=== PATIENT | male | born 1995 | race Two or more races ===

== ENCOUNTER 2024-03-26 09:24 | Emergency (ER) | payer SELFPAY ==
[2024-03-26] MEDS ORDERED: KETOROLAC 30 MG/ML INJ ONE (09:51)
[2024-03-26] MEDS ORDERED: AMOX/K CLAV 875 MG TAB ONE (09:51)
[2024-03-26] MEDS ORDERED: TDAP (DIPHTH,PERTUSS(ACELL),TET VAC) 0.5 ML VIAL IMVAC ONE (09:52)
--- NOTE | 2024-03-26 11:00 | RAD REPORT ---
EXAMINATION: XR RIGHT FOOT CLINICAL INDICATION: Male, 28 years old. dog bite, lateral portion[facility] MAIN dog bite, lateral portion Bed: TECHNIQUE: Multiple views of the right foot were obtained. COMPARISON: No prior exam. FINDINGS: No fracture, dislocation or radiopaque foreign body. No soft tissue gas. Mild soft tissue s welling along the anterior aspect of the foot dorsal soft tissues.
--- NOTE | 2024-03-26 11:03 | EDPHYS ---
Physician Documentation [facility] Name: Thai Linn Age: 28 yrs Sex: Male : 1995 Arrival Date: 03/26/2024 Time: 09:24 Bed 16 Private MD: ED Physician Shahram Head HPI: 03/26 09:37 This 28 yrs old Male presents to ER via Wheelchair with complaints of Dog ec2 Bite - right foot. 09:37 Patient arrives today for evaluation after being bitten by his dog. Reports his dog is ec2 not up-to-date on his vaccines. States that the bite happened 2 days ago. Patient reports no fevers or chills, reports persistent pain which is what prompted evaluation. Reports no medication allergies. Reports some redness to the area as well.. Historical: - Allergies: 09:36 No Known Allergies; iw - Home Meds: 09:36 None [Active]; iw - PMHx: 09:36 None; iw - PSHx: 09:36 None; iw - Immunization history:: Last tetanus immunization: unknown. - Infectious Disease History:: Denies. - Social history:: Smoking status: Smoking status: Reported history of juuling and/or vaping. ROS: 09:37 Constitutional: as per hpi ec2 Exam: 09:37 Constitutional: GEN: NAD Head: atraumatic Eyes: EOMI Ears: External ears are ec2 normal. CV: regular rate LUNGS: no respiratory distress ABD: non-distended SKIN: Puncture wound x 3 to the right lateral aspect of the foot, overlying erythema, no discharge appreciated. MSK: no evidence of trauma Vital Signs: 09:36 BP 152 / 99; Pulse 81; Resp 16; Temp 98.1(O); Pulse Ox 98% on R/A; Weight 113.4 kg; iw Height 5 ft. 11 in. ; Pain 0/10; 11:16 BP 142 / 86; Pulse 88; Resp 18; Pulse Ox 100% on R/A; mb9 09:36 Body Mass Index 34.87 (113.40 kg, 180.34 cm) iw 09:36 Pain Scale: Adult iw MDM: 09:37 Patient medically screened. ec2 09:37 Data reviewed: vital signs. ED course: Patient arrives today for evaluation after being ec2 bitten by dog. Examination remarkable for skin findings as above. Will obtain radiograph. Suspect infection. Discussed possible rabies vaccinations however will decline at this time. Will evaluate for other process such as bony fracture, additionally considered cellulitis . 10:53 ED course: Foot x-ray independently reviewed and interpreted by me, shows no bony ec2 fracture. Will start the patient on antibiotics and discharged home. Return precautions given.. 03/26 09:37 Order name: Foot Right 3 View XRAY; Complete Time: 11:02 ec2 Administered Medications: 09:58 Drug: Boostrix Tdap IM 0.5 ml IM once; as a single dose {Note: 03/15/25 333SK mb9 [employer].} Route: IM; Site: left deltoid; 11:16 Follow up: Response: No adverse reaction mb9 09:58 Not Given (Patient Refused): [id number] mg IM once mb9 10:01 Drug: Amoxicillin-Clavulanate PO 875 mg PO once Route: PO; mb9 11:16 Follow up: Response: No adverse reaction mb9 Disposition Summary: 03/26/24 11:03 Discharge Ordered Notes: Location: Home ec2 Condition: Stable ec2 Diagnosis - Bitten by dog ec2 - Cellulitis of right lower limb ec2 Followup: ec2 - With: Private Physician - When: - Reason: Re-evaluation by your physician Discharge Instructions: - Discharge Summary Sheet ec2 - Animal Bite, Adult, [id number] ec2 Forms: - Work release form ec2 - Medication Reconciliation Form ec2 - Antibiotic Education ec2 - Prescription Opioid Use ec2 - Patient Portal Instructions ec2 - Leadership Thank You Letter ec2 Prescriptions: - Augmentin 875-125 mg Oral Tablet - take 1 tablet ORAL route every 12 hours for 10 days; 20 tablet; Refills: 0, ec2 Product Selection Permitted Signatures: Dispatcher [employer] Alena Marquez RN RN iw Wilkerson, Mary Beth, RN RN mb9 Shahram Head MD MD ec2
--- NOTE | 2024-03-26 11:03 | ER ---
Nurse's Notes [facility] Name: Thai Linn Age: 28 yrs Sex: Male : 1995 Arrival Date: 03/26/2024 Time: 09:24 Bed 16 Private MD: Diagnosis: Bitten by dog;Cellulitis of right lower limb Presentation: 03/26 09:35 Chief complaint: Patient states: was bit by his dog on Sunday night, bit on right foot, iw puncture wounds noted to top and bottom of foot. Coronavirus screen: At this time, the client does not indicate any symptoms associated with coronavirus-19. Ebola Screen: No symptoms or risks identified at this time. Risk Assessment: Do you want to hurt yourself or someone else? Patient reports no desire to harm self or others. 09:35 Method Of Arrival: Wheelchair iw 09:40 Initial Sepsis Screen: Does the patient meet any 2 criteria? No. Patient's initial iw sepsis screen is negative. Does the patient have a suspected source of infection? No. Patient's initial sepsis screen is negative. Onset of symptoms was March 24, 2024. 09:40 Acuity: JOAQUIN 4 iw Historical: - Allergies: 09:36 No Known Allergies; iw - Home Meds: 09:36 None [Active]; iw - PMHx: 09:36 None; iw - PSHx: 09:36 None; iw - Immunization history:: Last tetanus immunization: unknown. - Infectious Disease History:: Denies. - Social history:: Smoking status: Smoking status: Reported history of juuling and/or vaping. Screenin:00 [facility] ED Fall Risk Assessment (Adult) History of falling in the last 3 months, mb9 including since admission No falls in past 3 months (0 pts) Confusion or Disorientation No (0 pts) Intoxicated or Sedated No (0 pts) Impaired Gait No (0 pts) Mobility Assist Device Used No (0 pt) Altered Elimination No (0 pt) Score/Fall Risk Level 0 - 2 = Low Risk Oriented to surroundings, Maintained a safe environment, Educated pt \T\ family on fall prevention, incl call for assistance when getting out of bed. Abuse screen: Denies threats or abuse. Nutritional screening: No deficits noted. Tuberculosis screening: No symptoms or risk factors identified. Assessment: 09:59 General: Appears in no apparent distress. Behavior is calm, cooperative. Pain: mb9 Complains of pain in right foot. Neuro: Mccoy Agitation-Sedation Scale (RASS): 0 - Alert and Calm Level of Consciousness is awake, alert, obeys commands, Oriented to person, place, time, situation, Appropriate for age. Cardiovascular: Patient's skin is warm and dry. Respiratory: Airway is patent Respiratory effort is even, unlabored, Respiratory pattern is regular, symmetrical. GI: No signs and/or symptoms were reported involving the gastrointestinal system. : No signs and/or symptoms were reported regarding the genitourinary system. EENT: No signs and/or symptoms were reported regarding the EENT system. Derm: Skin is intact, Skin is pink, warm \T\ dry. Musculoskeletal: Range of motion: intact in all extremities, Swelling present in right foot. Injury Description: Bite sustained to right foot caused by a dog. 10:05 Reassessment: Spoke with Betsy from [facility] and reported dog bite. mb9 Vital Signs: 09:36 BP 152 / 99; Pulse 81; Resp 16; Temp 98.1(O); Pulse Ox 98% on R/A; Weight 113.4 kg; iw Height 5 ft. 11 in. ; Pain 0/10; 11:16 BP 142 / 86; Pulse 88; Resp 18; Pulse Ox 100% on R/A; mb9 09:36 Body Mass Index 34.87 (113.40 kg, 180.34 cm) iw 09:36 Pain Scale: Adult iw ED Course: 09:27 Patient arrived in ED. im 09:33 Shahram Head MD is Attending Physician. ec2 09:40 Triage completed. iw 09:49 Светлана Grande RN is Primary Nurse. mb9 09:49 Arm band placed on. mb9 10:00 Bed in low position. Call light in reach. Side rails up X 1. Adult w/ patient. Provided mb9 Education on: press call light if needing anything. Client placed on continuous cardiac and pulse oximetry monitoring. NIBP monitoring applied. 10:00 No provider procedures requiring assistance completed. Patient did not have IV access mb9 during this emergency room visit. 10:48 Foot Right 3 View XRAY In Process Unspecified. EDMS Administered Medications: 09:58 Drug: Boostrix Tdap IM 0.5 ml IM once; as a single dose {Note: 03/15/25 333SK mb9 [employer].} Route: IM; Site: left deltoid; 11:16 Follow up: Response: No adverse reaction mb9 09:58 Not Given (Patient Refused): [id number] mg IM once mb9 10:01 Drug: Amoxicillin-Clavulanate PO 875 mg PO once Route: PO; mb9 11:16 Follow up: Response: No adverse reaction mb9 Medication: 10:00 VIS not applicable for this client. mb9 Outcome: 11:03 Discharge ordered by . ec2 11:16 Discharged to home via wheelchair, with family, mb9 11:16 Condition: stable 11:16 Discharge instructions given to patient, Instructed on discharge instructions, follow up and referral plans. Demonstrated understanding of instructions, follow-up care, medications, Prescriptions given X 1, 11:16 Patient left the ED. mb9 Signatures: Dispatcher [employer] Alena Marquez RN RN iw Wilkerson, Светлана Brian RN RN mb9 Norma Dang Edwin, MD MD ec2 Corrections: (The following items were deleted from the chart) 09:38 09:36 BP 152 / 99; Pulse 81bpm; Resp 16bpm; Pulse Ox 98% RA; iw sam
[2024-03-26 11:22] VITALS: TEMP 98.1
[2024-03-26 11:24] VITALS: BP 142/86; O2SAT 100
== END 2024-03-26 11:16 | disposition home or self-care (01) ==
LOC: ER 09:24
DX: L03.115 Cellulitis of right lower limb (principal); W54.0XXA Bitten by dog, initial encounter